=== PATIENT | male | born 1955 | race Caucasian/White ===

== ENCOUNTER 2017-08-21 17:27 | Emergency (ER) | payer BC ==
[~2017-08-21] VITALS: Ht 175.3 cm; Wt 84.5 kg
[2017-08-21 19:01] VITALS: BP 129/81
== END 2017-08-21 19:04 | disposition home or self-care (01) ==
LOC: ED 18:45
DX: K40.91 Unilateral inguinal hernia, without obstruction or gangrene, recurrent (principal)
CPT/HCPCS: 99284

== ENCOUNTER → 2019-04-03 | Outpatient (CLI) | payer MEDICARE, BC ==
[~2019-04-03] MED LIST: ASPI-496 PO; ATOR20TA37 PO; LISI5TAB7 PO
[2019-04-03 15:10] LABS: ALANINE AMINOTRANSFERASE 35 U/L (12-78); ALBUMIN 4.2 g/dL (3.4-5.0); ANION GAP 5 mmol/L (5-15); CALCIUM 8.9 mg/dL (8.5-10.1); CHLORIDE 108 mmol/L (98-107)
[2019-04-03 15:12] LABS: ALKALINE PHOSPHATASE 107 U/L (45-117); BILIRUBIN,TOTAL 0.8 mg/dL (0.2-1.0); TOTAL PROTEIN 7.8 g/dL (6.4-8.2)
== END | disposition home or self-care (01) ==
LOC: STAR 14:09
PROVIDERS: ATTEND Thoracic Surgery (Cardiothoracic Vascular Surgery)
DX: Z01.818 Encounter for other preprocedural examination (principal); K40.90 Unilateral inguinal hernia, without obstruction or gangrene, not specified as recurrent
CPT/HCPCS: 36415; 80053; 93005

== ENCOUNTER 2019-04-12 06:05 | Day surgery (SDC) | payer MEDICARE, BC ==
[2019-04-03 14:36] VITALS: BP 122/86
[~2019-04-12] VITALS: Ht 175.3 cm; Wt 82.7 kg
[2019-04-12] MEDS ORDERED: LACTATED RINGERS 1,000 ML IV SCH ×2 (06:40→08:22)
[2019-04-12] MEDS ORDERED: BUPIVACAINE/PF-EPI 0.5% 1:200K ONE (07:01)
[2019-04-12] MEDS ORDERED: ACETAMINOPHEN 500 MG TABLET ONE (07:11)
[2019-04-12] MEDS ORDERED: FENTANYL PF 250 MCG/5ML ONE (07:22)
[2019-04-12] MEDS ORDERED: MIDAZOLAM 1 MG/ML, 2ML ONE (07:22)
[2019-04-12] MEDS ORDERED: FENTANYL PF 100 MCG/2ML IV PRN (07:30)
[2019-04-12] MEDS ORDERED: ACETAMINOPHEN 500 MG TABLET PO ONE (07:30)
[2019-04-12] MEDS ORDERED: MEPERIDINE/PF 25MG/ML,1ML IVPush PRN (07:30)
[2019-04-12] MEDS ORDERED: PROMETHAZINE 25 MG/ML, 1ML IV PRN (07:30)
[2019-04-12] MEDS ORDERED: HALOPERIDOL 5 MG/ML IV PRN (07:30)
[2019-04-12] MEDS ORDERED: GABAPENTIN 300 MG CAPSULE PO ONE (07:30)
[2019-04-12] MEDS ORDERED: LABETALOL 5MG/ML, 20ML IV PRN (07:30)
[2019-04-12] MEDS ORDERED: hydrALAzine 20 MG/ML, 1ML IV PRN (07:30)
[2019-04-12] MEDS ORDERED: OXYcodone 5 MG/5 ML ORAL.SOL UDC PO PRN (07:30)
[2019-04-12] MEDS ORDERED: HYDROmorphone 2 MG/ML, 1ML IVPush PRN (07:30)
[2019-04-12] MEDS ORDERED: PHENYLEPHRINE 10 MG/ML ONE (07:38)
[2019-04-12] MEDS ORDERED: SUCCINYLCHOLINE 20 MG/ML, 10ML ONE (08:03)
[2019-04-12] MEDS ORDERED: DEXAMETHASONE 4 MG/ML, 1ML ONE (08:03)
[2019-04-12] MEDS ORDERED: ROCURONIUM 10MG/ML,5ML ONE (08:03)
[2019-04-12] MEDS ORDERED: GLYCOPYRROLATE 0.2MG/1ML, 5ML ONE (08:03)
[2019-04-12] MEDS ORDERED: CEFAZOLIN 1,000 MG ONE (08:03)
[2019-04-12] MEDS ORDERED: PROPOFOL 10 MG/ML, 20ML ONE (08:03)
[2019-04-12] MEDS ORDERED: ONDANSETRON 2MG/ML, 2ML ONE (08:03)
[2019-04-12] MEDS ORDERED: NEOSTIGMINE 1 MG/ML, 10ML ONE (08:03)
[2019-04-12] MEDS ORDERED: morphine SULFATE 10 MG/ML, 1ML IVPush PRN (08:30)
[2019-04-12] MEDS ORDERED: ONDANSETRON 2MG/ML, 2ML IVPush PRN (08:30)
[2019-04-12] MEDS ORDERED: HYDROcodone/APAP 5/325 TABLET PO PRN (08:30)
== END 2019-04-12 10:15 | disposition home or self-care (01) ==
LOC: OUT 06:05
PROVIDERS: ATTEND Thoracic Surgery (Cardiothoracic Vascular Surgery)
DX: K40.90 Unilateral inguinal hernia, without obstruction or gangrene, not specified as recurrent (principal); I10 Essential (primary) hypertension; E78.00 Pure hypercholesterolemia, unspecified; Z79.82 Long term (current) use of aspirin; Z79.899 Other long term (current) drug therapy; Z72.89 Other problems related to lifestyle; Z98.890 Other specified postprocedural states; Z82.49 Family history of ischemic heart disease and other diseases of the circulatory system
CPT/HCPCS: 49650; C1727; C1781; J0330; J0690; J1100; J2250; J2370; J2405; J2704; J2710; J3010; J7120